=== PATIENT | female | born 1990 | race Caucasian/White ===

== ENCOUNTER 2016-11-19 13:42 | Emergency (ER) | payer BC, MEDICAID ==
[2016-11-19 13:54] VITALS: BP 125/84
[2016-11-19] MEDS ORDERED: Acetaminophen 325 MG Tab PO ONE (14:28)
[2016-11-19] MEDS ORDERED: Ondansetron 4 MG Tab.DIS PO ONE (14:32)
--- NOTE | 2016-11-19 15:23 | EDM.PDOC ---
ED HPI GENERAL MEDICAL PROBLEM - General Chief Complaint: Headache Stated Complaint: LEFT SIDE HEADACHE/TEMPORARY VISION LOSS Time Seen by Provider: 11/19/16 14:06 Source of Information: Reports: Patient History Limitations: Reports: No Limitations - History of Present Illness INITIAL COMMENTS - FREE TEXT/NARRATIVE: Patient is a 26-year-old female who presents to the ED complaining of blurriness to the left eye with a minor headache to the frontal aspect of her head. This occurred at 11:00 today. Patient states this morning she was working out from 8-10. This was a strength day and denies any excessive cardio. She had no headache or trauma to her head during her workout. She had no complaints. States the vision to her eye started to blurred 1 hr after working out. This came on gradually. She noticed some flashing lights, halos, and a crescent shape impeding her vision. She states it crossed over into her right eye as well. Symptoms only lasted for a 10 minutes. She presents to the E.D. with only complaining of pressure sensation to her forehead. She has history of similar symptoms in the past that resolved on its own accord. She denies sinus congestion, runny nose, ear pain, or sore throat. She does note some mild photophobia and sensitivity to noise. She is mildly nauseated. She denies any numbness or tingling, weakness, shortness of breath, chest pain, fever, or vision loss currently. She has no history of migraine headaches. There is no family history of brain aneurysms, strokes, and MS. Patient has no past medical history. Receives depo-provera shot. 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: Psychiatric History: Reports: Depression Social & Family History - Tobacco Use Smoking Status *Q: Current Every Day Smoker Years of Tobacco use: 1 Packs/Tins Daily: 1 Used Tobacco, but Quit: Yes Month Tobacco Last Used: 09/2013 Second Hand Smoke Exposure: No - Caffeine Use Caffeine Use: Reports: Coffee, Soda - Alcohol Use Days Per Week of Alcohol Use: 0 - Recreational Drug Use Recreational Drug Use: No Drug Use in Last 12 Months: Yes Recreational Drug Type: Reports: Marijuana/Hashish Recreational Drug Use Frequency: Patient Refuses To Answer ED ROS GENERAL - Review of Systems Review Of Systems: ROS reveals no pertinent complaints other than HPI. - Physical Exam Exam: See Below Exam Limited By: No Limitations General Appearance: Alert, WD/WN, No Apparent Distress Eye Exam: Bilateral Eye: EOMI, Nystagmus (None stated), PERRL, Vision Changes ( none stated) Ears: Hearing Grossly Normal Nose: Normal Inspection Throat/Mouth: Normal Inspection, Normal Oropharynx, Normal Voice, No Airway Compromise, Other (No facial droop or slurred speech.) Head Exam: Atraumatic, Normocephalic Neck: Normal Inspection, Supple, Non-Tender, Full Range of Motion Respiratory/Chest: No Respiratory Distress, Lungs Clear, Normal Breath Sounds, No Accessory Muscle Use Cardiovascular: Normal Peripheral Pulses, Regular Rate, Rhythm Neuro Exam (Abbreviated): Alert, Oriented, CN II-XII Intact, Normal Cognition, No Motor/Sensory Deficits, Other (Cerebellar function intact including finger- nose, rapid alternating movements. Strength 5 over 5 to the upper and lower extremities.) Back Exam: Normal Inspection Extremities: Normal Inspection, Normal Range of Motion, Non-Tender Psychiatric: Normal Affect, Normal Mood Skin Exam: Warm, Dry, Intact, Normal Color Course - Vital Signs Last Recorded V/S: Last Vital Signs Temp 98.2 F 11/19/16 13:49 Pulse 81 11/19/16 13:49 Resp 18 11/19/16 13:49 BP 125/84 11/19/16 13:49 Pulse Ox 98 11/19/16 13:49 - Orders/Labs/Meds Meds: Medications Discontinued Medications Generic Name Dose Route Start Last Admin Trade Name Home PRN Reason Stop Dose Admin Acetaminophen 975 mg 11/19/16 14:28 11/19/16 14:32 Tylenol PO 11/19/16 14:29 975 mg NOW ONE Administration Ondansetron HCl 4 mg 11/19/16 14:32 11/19/16 14:35 Zofran Odt PO 11/19/16 14:33 4 mg ONETIME ONE Administration - Re-Assessments/Exams Free Text/Narrative Re-Assessment/Exam: Majority of the patient's symptoms have resolved with admission to the ED. She only has faint pressure noted to the frontal aspect of her head. Physical examination was essentially normal. Visual acuity test was 20/20 in both eyes. Headache is minor in nature. Thus will hold off in pursuing further testing. Ordered Tylenol 975 mg by mouth. Plan is to discharge the patient. She'll return back if she experiences any new or worsening symptoms. Patient agrees with the plan. Discharge instructions as documented. Departure - Departure Time of Disposition: 15:34 Disposition: Home, Self-Care 01 Condition: Good Clinical Impression: Vision changes Headache Qualifiers: Headache type: unspecified Headache chronicity pattern: episodic headache Intractability: not intractable Qualified Code(s): R51 - Headache - Discharge Information Referrals: Delilah Garvey MD [Primary Care Provider] - Katty Ornelas PA [Physician [employer] Control Equipment Repairer] - Forms: ED Department Discharge, ED Return to Work/School Form Additional Instructions: Majority of symptoms have resolved prior to admission to the E.D. Suspect etiology of intermittent vision changes associated with onset of FINK. FINK's specifically migraines can cause similar symptoms. Will have utilize ibuprofen and Tylenol in alternating fashion for pain. Monitor for any changes. Follow up with your PCP this coming week for reevaluation. Return to ED for any new or worsening symptoms including: Worst headache of life, loss of vision, numbness or tingling, weakness, and a fever to name a few.
== END 2016-11-19 15:48 | disposition home or self-care (01) ==
LOC: JD.ED 13:42
DX: H53.8 Other visual disturbances (principal); R51 Headache; F17.210 Nicotine dependence, cigarettes, uncomplicated
CPT/HCPCS: 99284; A9270; 99283